=== PATIENT | male | born 1970 | race American Indian/Alaskan Native ===

== ENCOUNTER 2018-12-30 10:09 | Emergency (ER) | payer SELFPAY ==
[2018-12-30 10:34] VITALS: BP 129/86
[2018-12-30] MEDS ORDERED: ROCEPHIN IM ONE (11:03)
[2018-12-30] MEDS ORDERED: XYLOCAINE 1% MPF 5 mL INFILTRATI ONE (11:03)
[2018-12-30] MEDS ORDERED: ZITHROMAX PO ONE (11:03)
--- NOTE | 2018-12-30 11:03 | Emergency Department Report ---
ED Dysuria HPI - HPI Chief Complaint: Urogenital-Male Stated Complaint: STD CHECK Time Seen by Provider: 12/30/18 11:02 Location of Discomfort: Other Severity: None Symptoms: Dysuria: No, Frequency: No, Suprapubic Pain: No, Flank Pain: No, Fever: No, Hematuria: No, Abdominal Pain: No, Previous UTI's: No Other History: 48 YO WITH KNOWN EXPOSURE TO CHLAMYDIA. ED Review of Systems ROS: Stated complaint: STD CHECK Other details as noted in HPI Comment: All other systems reviewed and negative ED Past Medical Hx - Past Medical History Previous Medical History?: No - Surgical History Past Surgical History?: No - Family History Family history: no significant - Social History Smoking Status: Current Every Day Smoker Substance Use Type: None Dysuria Exam - Exam General: Vital signs noted. No distress. Alert and acting appropriately. Exam: Yes Moist Mucous Membranes, No CVA Tenderness, No Abdominal Tenderness, No Rigidity or Guarding ED Course Vital Signs 12/30/18 10:33 Temperature 98.5 F Pulse Rate 64 Respiratory 16 Rate Blood Pressure 129/86 O2 Sat by Pulse 98 Oximetry ED Medical Decision Making - Medical Decision Making Vital Signs 12/30/18 10:33 Temperature 98.5 F Pulse Rate 64 Respiratory 16 Rate Blood Pressure 129/86 O2 Sat by Pulse 98 Oximetry EMPIRIC TREATMENT DUE TO PUBLIC HEALTH RISK Critical care attestation.: If time is entered above; I have spent that time in minutes in the direct care of this critically ill patient, excluding procedure time. ED Disposition Clinical Impression: STD (male) Disposition: DC-01 TO HOME OR SELFCARE Is pt being admited?: No Does the pt Need Aspirin: No Condition: Stable Instructions: Safe Sex (ED) Time of Disposition: 11:09
== END 2018-12-30 12:04 | disposition home or self-care (01) ==
LOC: ED 10:09
DX: A64 Unspecified sexually transmitted disease (principal); F17.200 Nicotine dependence, unspecified, uncomplicated
CPT/HCPCS: 87591; 96372; 99282; J0696

== ENCOUNTER 2019-08-13 19:45 | Emergency (ER) | payer SELFPAY ==
[2019-08-13 19:51] VITALS: BP 117/77
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
== END 2019-08-13 22:30 | disposition left against medical advice (07) ==
LOC: ED 19:45
DX: M25.512 Pain in left shoulder (principal); Z53.21 Procedure and treatment not carried out due to patient leaving prior to being seen by health care provider